=== PATIENT | male | born 1990 | race African-American/Black ===

== ENCOUNTER 2023-06-08 01:12 | Emergency (ER) | payer OTHER, SELFPAY ==
[2023-06-08 02:06] VITALS: BP 113/60; PULSE 65; RESP 18; TEMP 36.6; O2SAT 99
[2023-06-08 02:33] LABS: IDNOW Serial# 08D9AD1C; Strep A Nucleic Acid Negative (Negative)
[2023-06-08 02:53] LABS: Influenza A PCR NEGATIVE (Negative); Influenza B PCR NEGATIVE (Negative); Resp Syncy Virus RNA Qual PCR NEGATIVE (Negative); SARS COV2 PCR INHOUSE NEGATIVE (Negative)
[2023-06-08 03:13] VITALS: BP 106/74; PULSE 72; RESP 18; TEMP 36.6; O2SAT 100; BMI 24.2
--- NOTE | 2023-06-08 03:36 | ED_ITS ---
HPI - Fever General Chief Complaint: Upper Respiratory Symptoms Stated Complaint: Flu symptoms Time Seen by Provider: 06/08/23 03:01 Source: patient and sales account manager Mode of arrival: ambulatory Limitations: no limitations History of Present Illness HPI Narrative: 32 yo male who denies any PMH here with c/o runny nose, body aches, fevers for one day malaise vague symptoms no travel no other history denies HIV but has unprotected sex with men elicited complaint: fever and malaise Onset (ago): day(s) (1) Exacerbating factors: nothing Relieving factors: nothing Associated symptoms: chills, myalgias and rhinorrhea Treatments prior to arrival fever: none Related Data Allergies Allergy/AdvReac Type Severity Reaction Status Date / Time No Known Allergies Allergy Verified 06/08/23 03:20 Review of Systems Review of Systems: Constitutional : pos Fever, pos Chills, pos Fatigue ENT/Mouth : No sore throat, No Rhinorrhea Eyes: No Eye Pain, No Swelling, No Redness Cardiovascular : No Chest Pain, No SOB, No Dyspnea on Exertion Respiratory : No Cough, No Sputum Gastrointestinal : No Nausea, No Vomiting, No Diarrhea, No abdominal Pain Genitourinary : No Dysuria, No Urinary Frequency, No Hematuria, Musculoskeletal : No joint pain, pos Myalgias, No Joint Swelling Skin : No Skin Lesions, No rash Neuro : No Weakness, No Numbness, No Dizziness, no Headache Psych : No Anxiety/Panic, No Depression All other systems reviewed and are negative [facility] Past Medical History Attestation statement: The following information was validated with the patient. Source: old records reviewed Medical History No pertinent past medical history Social History Social History (Updated 06/08/23 @ 03:45 by Sheeba Kline DO) Patient Tobacco Use Status: Never used Tobacco Physical Exam Vital Signs: Vital Signs: Last Vital Signs Temp 97.8 F 06/08/23 03:13 Pulse 72 06/08/23 03:13 Resp 18 06/08/23 03:13 BP 106/74 06/08/23 03:13 Pulse Ox 100 06/08/23 03:13 O2 Del Method Room Air 06/08/23 03:13 BMI result Body Mass Index 24.2 Appearance: Alert. Oriented X3. No acute distress. Eyes: Pupils equal, round and reactive to light. ENT: Pharynx normal. Some scant white patches on tongue, no exudates on the tonsils Neck: Normal inspection. Neck supple. CVS: Normal heart rate and rhythm. Pulses normal. Respiratory: No respiratory distress. Breath sounds normal. Abdomen: Soft and nontender. Skin: Skin warm and dry. Normal skin color. Normal skin turgor. Extremities: No lower extremity edema. No calf ttp Neuro: Oriented X 3. No motor deficit. No sensory deficit. Medical Decision Making Medical Decision Making [facility] Narrative: 32 yo male with no sig PMH here with viral like illness who has unprotected sex with males at this time looks like he has old thrush on his tongue but states it does not bother him at this time will obtain CBC, viral panel and HIV testing as he has no PCP or anyone to follow up with Differential Diagnosis Differential Diagnoses: The differential diagnosis associated with the presentation includes HIV, viral syndrome Admission/Observation Consideration of admission/observation: Escalation of care including admission/observation considered can be managed as outpatient not toxic Lab Data [facility] Lab Attestation statement: I reviewed the patient's lab results. Labs: Lab Results 06/08/23 Range/Units 02:08 Influenza Type A (PCR) NEGATIVE (Negative) Influenza Type B (PCR) NEGATIVE (Negative) RSV RNA Qual (PCR) NEGATIVE (Negative) SARS-CoV-2 RNA (RT-PCR) NEGATIVE (Negative) S. pyogenes GrpA RADHA Negative (Negative) Discharge Plan Discharge Clinical Impression: Viral infection Patient Disposition: Home, Self-Care Instructions: Viral Syndrome (ED), HIV Transmission (ED) Additional Instructions: we will call you in regards to your hiv test NEGATIVE FLU COVID RSV AND STREP throat Print Language: Guyanese Creole
[2023-06-08 03:39] VITALS: BP 100/58; PULSE 70; RESP 14; TEMP 36.5; O2SAT 100
[2023-06-08 03:42] VITALS: O2SAT 100
[2023-06-08 03:43] LABS: MANUAL DIFF FLAG NO
[2023-06-08 03:44] LABS: Basophils Percent Auto 0.5 % (0-2); Eosinophils Absolute Auto 0.2 X10*3/uL (0.0-0.4); Eosinophils Percent Auto 3.8 % (0-4); Hematocrit 44.9 % (42.0-52.0); Hemoglobin 13.9 g/dl (14.0-18.0); Imm Gran Abs Auto 0.01 X10*3/uL (0.00-0.03); Imm Gran Pct Auto 0.3 % (0.0-0.4); Lymphocytes Absolute Auto 1.9 X10*3/uL (1.2-4.9); Lymphocytes Percent Auto 47.9 % (20-40); Mean Corpuscular Hemoglobin 21.8 pg (27.0-33.0); Mean Corpuscular Volume 70.4 fL (80.0-98.0); Mean Platelet Volume 10.5 fL (9.4-12.4); Monocytes Absolute Auto 0.5 X10*3/uL (0.1-1.2); Monocytes Percent Auto 13.3 % (2-11); Neutrophils Absolute Auto 1.4 x10*3/uL (2.0-8.3); Neutrophils Percent Auto 34.2 % (45-73); Platelet Count 182 X10*3/uL (160-400); Red Blood Count 6.38 X10*6/uL (4.60-5.80); Red Cell Distribution Width 14.5 % (11.0-16.0)
[2023-06-08 03:50] VITALS: BP 120/72; PULSE 61; RESP 18; TEMP 36.6; O2SAT 100
--- NOTE | 2023-06-08 03:50 | PC.NURSE ---
pt states best number to contact him with test results is [phone]
[2023-06-08 08:56] LABS: HIV AB/AG Nonreactive (Nonreactive); HIV Num 1 0.05 S/CO (0.00-0.99)
== END 2023-06-08 03:53 | disposition home or self-care (01) ==
PROVIDERS: Physician Assistant Medical; Emergency Provider Emergency Medicine
DX: B34.9 Viral infection, unspecified (principal); Z72.52 High risk homosexual behavior
CPT/HCPCS: 0241U; 36415; 85025; 87389; 87651; 99283; 99284